=== PATIENT | female | born 1980 | race Caucasian/White ===

== ENCOUNTER 2018-05-02 12:48 | Emergency (ER) | payer OTHER, SELFPAY ==
[2018-05-02 12:50] VITALS: BP 118/83; PULSE 87; RESP 17; TEMP 36.7; O2SAT 97; BMI 31.7
--- NOTE | 2018-05-02 13:17 | ED.VISSUMM ---
- ER Visit Summary Date of Service: 05/02/18 Chief Complaint: Left wrist pain History of Present Illness: The patient is a 37 F who states that on the of this month she had a partial hysterectomy. She is from out of town visiting family for [place]. She states that this morning she woke and had swelling and pain just proximal to the IV site of her left wrist. No fevers. No drainage. No erythema to the area. She spoke with her doctor who wanted her to be evaluated. Physical Examination: Afebrile vital signs are stable Gen: Well-nourished well-developed Head: Normocephalic atraumatic Eyes: Perrl EOMI ENT: TMs clear no rhinorrhea moist mucous membranes Neck: Supple no lymphadenopathy no JVD nontender CVS: Regular rate rhythm no murmurs normal S1-S2 Respiratory: No distress clear to auscultation bilaterally chest nontender Abdomen: Soft nontender nondistended normal bowel sounds no masses Back: Nontender Extremity: There is swelling and tenderness along the vein on the lateral aspect of the left wrist. There is no erythema. No lymphangitis. There is a palpable clot. Is no significant swelling distally. Skin: Normal color no rash Neuro: alert orientated ?3 CN II-XII intact normal strength sensation reflexes gait cerebellar Psych: Normal affect normal mood Emergency Department Course and Treatment: This appears to be a superficial thrombophlebitis without infection. The patient does not have evidence of DVT. I advised her on heat elevation and will place her on a aspirin a day for the next several days. Monitor for changes Impression: 1. Left wrist superficial thrombophlebitis This note was generated with [employer] dictation software. It may contain incorrect words, spelling, and punctuation that were not noted in review of the chart prior to signing ED Disposition - Plan for ED Patient: Disposition: Home or Assisted Living Chief Complaint: Upper Extremity Injury Instructions: ED Phlebitis Superficial Additional Instructions: I would take a full strength aspirin a day for the next 7 days. Follow-up with your doctor as scheduled Monitor for redness and fevers and return if present.
== END 2018-05-02 14:00 | disposition home or self-care (01) ==
LOC: ED 13:54
PROVIDERS: Emergency Provider Emergency Medicine
DX: I80.8 Phlebitis and thrombophlebitis of other sites (principal); Z90.710 Acquired absence of both cervix and uterus
CPT/HCPCS: 99282